=== PATIENT | female | born 1975 | race Caucasian/White ===

== ENCOUNTER → 2017-05-24 | Outpatient (CLI) | payer OTHER ==
--- NOTE | 2017-05-26 09:45 | MM ---
Reason for exam: screening (asymptomatic). Last mammogram was performed 5 years and 7 months ago. History: Patient had first child at age 33. Taking hormonal contraceptives for 20 years beginning at age 16. Physical Findings: A clinical breast exam by your physician is recommended on an annual basis and results should be correlated with mammographic findings. MG Screening Mammo w CAD Bilateral CC and MLO view(s) were taken. Prior study comparison: November 03, 2011, bilateral digital screening mammo w/CAD. The breast tissue is heterogeneously dense. This may lower the sensitivity of mammography. No significant changes when compared with prior studies. ASSESSMENT: Negative, BI-RAD 1 RECOMMENDATION: Routine screening mammogram of both breasts in 1 year.
== END | disposition home or self-care (01) ==
LOC: RADMAMWWP 07:17
PROVIDERS: ATTEND Obstetrics & Gynecology
DX: Z12.31 Encounter for screening mammogram for malignant neoplasm of breast (principal)
CPT/HCPCS: 77067

== ENCOUNTER → 2018-02-02 | Outpatient (CLI) | payer BC, OTHER ==
--- NOTE | 2018-02-02 21:05 | CONS ---
CONSULTATION DATE OF SERVICE: 02/02/2018 42-year-old lady who has been evaluated in the sleep center for possible obstructive sleep apnea-hypopnea syndrome. HISTORY OF PRESENT ILLNESS/SLEEP WAKE EVALUATION: SLEEP SCHEDULE: Patient usual sleep schedule at the present time from 9 p.m. until 5:30 a.m. on working days and from 9 p.m. until 6:30 or 7 am on weekends. FALLING ASLEEP: No problems with falling asleep, although she has TV set in the bedroom. DURING SLEEP: She snores and wakes up from sleep up to 4 times. Sometimes patient sleeps at night with her . About 20 years ago, she had a sleep study. At that time sleep study was negative for obstructive sleep apnea-hypopnea syndrome, but since that time she increased her weight significantly. After falling asleep quite quickly, patient has multiple awakenings from sleep and sometimes has problem with falling asleep again. DURING THE DAY/SLEEP WAKE EVALUATION: In the morning she wakes up tired, has problem with concentration, irritability. [place] Sleepiness Scale is 3. PAST MEDICAL HISTORY: Positive for colon polyps. PAST SURGICAL HISTORY: Tonsillectomy, polyps removed during colonoscopy. MEDICATION: control pill. SOCIAL HISTORY: Negative for smoking. Alcohol consumption very rarely. REVIEW OF SYSTEMS: Multiple awakenings from sleep. FAMILY HISTORY: Hypertension, hyperlipidemia, sinus problems, lung problems, sleep apnea, snoring, headaches, cancer, acid reflux. PHYSICAL EXAM: Presently without distress with BP 127/86, HR 69, RR 16, height 5 feet 5 inches, weight 153.6 with body mass index 25.4, VITAL SIGNS: Temperature 98.1, oxygen saturation on room air 100%. Oropharynx moderately low position of soft palate. Restriction of nasal breathing bilaterally. Retrognathia about 2 mm. Neck 13 inches in circumference. LUNGS Clear to percussion and to auscultation. Good air exchange. No wheezing or rhonchi. HEART S1, S2 regular. No murmurs, gallops, or rubs. ABDOMEN Soft and nontender. Bowel sounds are present. No organomegaly appreciated. EXTREMITIES No clubbing or cyanosis. ACUTE SPECIALIST Awake, alert, and oriented X3. Cranial nerves 2 to 7 intact. There is no fasciculation or atrophy. noted. No focal deficits observed. IMPRESSION: 1. Snoring, multiple awakenings from sleep, low position of soft palate, restriction of nasal breathing, obstructive sleep apnea-hypopnea syndrome. 2. History of kicking at night PLMS. 3. Status post tonsillectomy. 4. History of colon polyps. Status post polyps removed during colonoscopy. PLAN: 1. Polysomnography for evaluation of patient's breathing during the sleep and also to check for possible periodic limb movements. 2. CPAP/BiPAP titration if sleep study confirms obstructive sleep apnea-hypopnea syndrome. 3. Preferable position during sleep on the side. 4. No driving if patient feels any sleepiness. 5. I will see patient for follow up visit to explain results of testing and following plan. Thank you very much for referring this patient for consultation. Sincerely, Alfonso Vitale MD, PhD, FAASM Diplomat of [employer] Extrusion Die Corrector of [facility] [place] MMODL / KOREYN: [id number] /
== END | disposition home or self-care (01) ==
LOC: SLEEP 16:37
PROVIDERS: ATTEND Internal Medicine
DX: G47.33 Obstructive sleep apnea (adult) (pediatric) (principal); Z86.010 Personal history of colon polyps; Z87.898 Personal history of other specified conditions; Z90.09 Acquired absence of other part of head and neck; Z98.890 Other specified postprocedural states
CPT/HCPCS: 99211

== ENCOUNTER → 2018-05-18 | Outpatient (CLI) | payer BC ==
--- NOTE | 2018-05-18 18:43 | PN ---
PROGRESS NOTE DATE OF SERVICE: 05/18/2018 43-year-old lady has been followed in Sleep Center to discuss results of the sleep study and following plan. I discussed results of sleep studies with the patient in detail. Sleep study did not show any significant respiratory abnormalities. Totally it was documented only one episode of stopped breathing with total apnea-hypopnea index 0.2 and with the lowest oxygen level 89.6%, which is perfect. During the night, patient was in different position mostly on the back. She went through all the stages of sleep. No periodic limb movements have been documented. Sleep efficiency was 87.6%, which is borderline normal. Usually patient's sleep schedule at home from 9 p.m. to 5:30 a.m. Sometimes she may wake up in the middle of sleep and may have difficulties to fall asleep again. MEDICATIONS: . PHYSICAL EXAM: Patient in no distress. BP 120/71, HR 58, RR 16, height 5 feet 5 inches, weight 151, body mass index 25.1. Oxygen saturation at room air 100%. Oropharynx: Low position of soft palate. Neck: Supple, no JVD. Thyroid is not palpable. LUNGS: Clear to percussion and to auscultation. Good air exchange. No wheezing or rhonchi. HEART: S1, S2 regular. No murmurs, gallops, or rubs. ABDOMEN: Soft and nontender. Bowel sounds are present. No organomegaly appreciated. EXTREMITIES: No clubbing or cyanosis. BASKET WEAVER Awake, alert, and oriented X3. Cranial nerves 2 to 7 intact. There is no fasciculation or atrophy. noted. No focal deficits observed. IMPRESSION: 1. No significant respiratory abnormalities have been documented during the sleep study. 2. Very mild snoring has been documented. 3. No periodic limb movements during the sleep test. 4. Normal sleep efficiency during the sleep study with short sleep latency. 5. Status post tonsillectomy. 6. History of colon polyps removed during colonoscopy. PLAN: 1. Sleep hygiene with regular time in bed for 8-1/2 hours. 2. Stimulus control, paradoxical intention. No watching clock at night. 3. Preferable position during the sleep on the side. 4. No driving if feeling any sleepiness. No sleepiness presently. [place] Sleepiness Scale is 1. Normal. Thank you very much for allowing me to participate in management of your patient. Sincerely, Alfonso Vitale MD, PhD, FAASM Diplomat of [employer] Telegraphic Service Dispatcher of [facility] [place] MMURIEL / JAYLON: [id number] /
== END ==
LOC: SLEEP 16:34
PROVIDERS: ATTEND Internal Medicine
DX: R06.83 Snoring (principal); Z90.89 Acquired absence of other organs; Z98.890 Other specified postprocedural states; Z86.010 Personal history of colon polyps

== ENCOUNTER → 2018-06-15 | Outpatient (CLI) | payer BC ==
--- NOTE | 2018-06-16 13:29 | MM ---
Reason for exam: screening (asymptomatic). Last mammogram was performed 1 year and 1 month ago. History: Patient had first child at age 33. Taking hormonal contraceptives for 20 years beginning at age 16. Physical Findings: A clinical breast exam by your physician is recommended on an annual basis and results should be correlated with mammographic findings. MG 3D Screening Mammo W/Cad Bilateral CC and MLO view(s) were taken. Prior study comparison: May 24, 2017, bilateral MG screening mammo w CAD. November 03, 2011, bilateral digital screening mammo w/CAD. The breast tissue is extremely dense which could obscure a lesion on mammography. There is no discrete abnormality. No significant changes when compared with prior studies. ASSESSMENT: Negative, BI-RAD 1 RECOMMENDATION: Routine screening mammogram of both breasts in 1 year.
== END | disposition home or self-care (01) ==
LOC: RADMAMWWP 08:07
PROVIDERS: ATTEND Obstetrics & Gynecology
DX: Z12.31 Encounter for screening mammogram for malignant neoplasm of breast (principal)
CPT/HCPCS: 77063; 77067

== ENCOUNTER 2018-08-11 08:38 | Day surgery (SDC) | payer BC ==
[2018-08-09 09:30] VITALS: BMI 23.4
[~2018-08-11 08:38] MED LIST: LACTATED RINGERS 1,000 ML IV SCH
[2018-08-11] MEDS ORDERED: LIDOCAINE 1% 20 ML VIAL (10MG/ML) FOR IV START INTRADERMA ONE (09:18)
[2018-08-11 09:21] VITALS: TEMP 97.5
[2018-08-11] MEDS ORDERED: PROPOFOL 10 MG/ML 20 ML VIAL IV ONE (09:52)
--- NOTE | 2018-08-11 10:09 | P.PCN ---
Date of Procedure: 08/11/18 Procedure(s) Performed: BRIEF HISTORY: Patient is a 43-year-old pleasant white female, scheduled for an elective colonoscopy as a part of screening for colorectal neoplasia. She does have family history of colon cancer diagnosed in her grandmother at age 70. PROCEDURE PERFORMED: Colonoscopy With biopsy PREOPERATIVE DIAGNOSIS: Screening for colon cancer/family history of colon cancer. IV sedation per Anesthesia. PROCEDURE: After informed consent was obtained, the patient, was brought into the endoscopy unit. IV sedation was administered by Anesthesia under continuous monitoring. Digital rectal examination was normal. Initially the Olympus CF-160 flexible video colonoscope was then inserted in the rectum, gradually advanced into the cecum without any difficulty. Careful examination was performed as the scope was gradually being withdrawn. Ileocecal valve and the appendiceal orifice were visualized and appeared normal. Prep was excellent. Mucosa of the cecum, ascending colon, transverse colon, descending colon, sigmoid colon, and rectum appeared normal. There was a 3-4 mm sessile proximal rectal polyp that was removed by cold biopsy. Retroflexion was performed in the rectum and no lesions were seen. The patient tolerated the procedure well. IMPRESSION: 3-4 mm sessile proximal rectal polyp status post removal by cold biopsy. Rest of the colon appeared normal RECOMMENDATIONS: Findings of this examination were discussed with the patient as well as a family. She was advised to follow with the biopsy results and if the biopsy shows an adenoma she can have a repeat colonoscopy in 5 years.
[2018-08-11 10:32] VITALS: BP 129/85; PULSE 55; RESP 16
== END 2018-08-11 10:50 | disposition home or self-care (01) ==
LOC: ORWHC2ENDO 08:38
PROVIDERS: ATTEND Internal Medicine Gastroenterology
DX: Z12.11 Encounter for screening for malignant neoplasm of colon (principal); Z80.0 Family history of malignant neoplasm of digestive organs; K62.1 Rectal polyp; K21.9 Gastro-esophageal reflux disease without esophagitis; Z79.899 Other long term (current) drug therapy
CPT/HCPCS: 81025; 88305; 45380; J2704

== ENCOUNTER 2018-12-22 16:55 | Emergency (ER) | payer BC ==
[2018-12-22 17:09] VITALS: RESP 18
[2018-12-22] MEDS ORDERED: METOCLOPRAMIDE 5 MG/ML 2 ML VIAL IVP STA (17:41)
[2018-12-22] MEDS ORDERED: SODIUM CHLORIDE 0.9% 1,000 ML IV STA (17:41)
[2018-12-22] MEDS ORDERED: NITROGLYCERIN SL TABS 0.4 MG TAB SUBLINGUAL STA (17:42)
[2018-12-22] MEDS ORDERED: GLUCAGON 1 MG/ML VIAL IVP STA (17:42)
--- NOTE | 2018-12-22 17:50 | ED ---
General Adult HPI - General Chief complaint: Recheck/Abnormal Lab/Rx Stated complaint: Food stuck in throat since yesterday Time Seen by Provider: 12/22/18 17:16 Source: patient, RN notes reviewed Mode of arrival: ambulatory Limitations: no limitations - History of Present Illness Initial comments: Patient is a pleasant 43-year-old female presenting to the emergency department with concerns for something stuck in her throat. Patient was eating steak last night. Patient noticed when she was swallowing that is not going down. Patient has felt that has been stuck since that time. Patient is able to drink water without difficulty. Patient was able to try a tiny bit of oatmeal earlier. Patient has vomited a small amount several times however no large amount of meat came out. No history of similar symptoms previous. Patient does have history of chronic reflux. Patient states discomfort is mild. - Related Data Home Medications Medication Instructions Recorded Confirmed Ranitidine HCl 150 mg PO DAILY PRN 08/09/18 08/09/18 Allergies Allergy/AdvReac Type Severity Reaction Status Date / Time No Known Allergies Allergy Verified 12/22/18 17:09 Review of Systems ROS Statement: Those systems with pertinent positive or pertinent negative responses have been documented in the HPI. ROS Other: All systems not noted in ROS Statement are negative. Constitutional: Denies: fever Eyes: Denies: eye pain ENT: Denies: ear pain Respiratory: Denies: cough Cardiovascular: Reports: as per HPI Endocrine: Denies: fatigue Gastrointestinal: Reports: as per HPI. Denies: abdominal pain Genitourinary: Denies: dysuria Musculoskeletal: Denies: back pain Skin: Denies: rash Past Medical History Past Medical History: GERD/Reflux Additional Past Medical History / Comment(s): VERTIGO AT TIMES History of Any Multi-Drug Resistant Organisms: None Reported Past Surgical History: Tonsillectomy Additional Past Surgical History / Comment(s): COLONOSCOPY, CYSTOSCOPY, AND LAPAROSCOPY Past Anesthesia/Blood Transfusion Reactions: Previous Problems w/ Anesthesia Additional Past Anesthesia/Blood Transfusion Reaction / Comment(s): SLOW TO COME OUT OF ANESTHESIA Past Psychological History: No Psychological Hx Reported Smoking Status: Former smoker Past Alcohol Use History: Occasional Past Drug Use History: None Reported - Past Family History Mother Family Medical History: No Reported History General Exam Limitations: no limitations General appearance: alert, in no apparent distress Head exam: Present: normocephalic Eye exam: Present: normal appearance, PERRL ENT exam: Present: normal oropharynx Neck exam: Present: normal inspection Respiratory exam: Present: normal lung sounds bilaterally Cardiovascular Exam: Present: regular rate, normal rhythm Expanded Peripheral pulses: 2+: Posterior Tibialis (R), Posterior Tibialis (L), Dorsalis Pedis (R), Dorsalis Pedis (L) GI/Abdominal exam: Present: soft, normal bowel sounds. Absent: distended, tenderness, guarding, rebound, rigid, pulsatile mass Extremities exam: Present: normal inspection. Absent: pedal edema, calf tenderness Neurological exam: Present: alert Psychiatric exam: Present: normal affect, normal mood Skin exam: Present: normal color Course Vital Signs 12/22/18 17:06 Temperature 98.3 F Pulse Rate 78 Respiratory 18 Rate Blood Pressure 133/83 O2 Sat by Pulse 100 Oximetry Medical Decision Making - Medical Decision Making Patient reevaluated and resting comfortably in bed. Patient does feel better following medications. Patient given 8 ounces of soda pop and did tolerate this well. Patient also tolerated sherbet emergency department. Patient states symptoms are near resolved. Patient is comfortable with discharge home. Patient is advised GI follow-up. Disposition Clinical Impression: Sensation of foreign body in esophagus Disposition: HOME SELF-CARE Condition: Stable Instructions (If sedation given, give patient instructions): Esophageal Foreign Body (ED), Esophageal Spasm (ED) Additional Instructions: Soft diet. Please follow-up with gastroenterology in the next couple days for recheck. You will likely need EGD/scope done. Return for increased pain or difficulty in breathing, not tolerating liquids or oral intake, worsening symptoms or other concerns. Continue Zantac. Is patient prescribed a controlled substance at d/c from ED?: No Referrals: Magnus Dick DO [Primary Care Provider] - 1-2 days Time of Disposition: 19:27
[2018-12-22 19:54] VITALS: BP 133/78; PULSE 76; TEMP 98.2
== END 2018-12-22 19:53 | disposition home or self-care (01) ==
LOC: EC 16:55
DX: K22.8 Other specified diseases of esophagus (principal); K21.9 Gastro-esophageal reflux disease without esophagitis; Z87.891 Personal history of nicotine dependence
CPT/HCPCS: 99283; 96374; 96375; 96361; J1610; J2765

== ENCOUNTER → 2019-03-16 | Day surgery (SDC) | payer BC ==
[2019-03-14 11:13] VITALS: BMI 23.8
[~2019-03-16] MED LIST changes: +GLYCOPYRROLATE 0.2 MG/ML 2 ML VIAL ONE; +LIDOCAINE 1% 20 ML VIAL (10MG/ML) FOR IV START INTRADERMA PRN; +LIDOCAINE 1% INJ 10MG/ML (20 ML MDV) ONE; +PROPOFOL 10 MG/ML 20 ML VIAL IV ONE
[2019-03-16 11:04] VITALS: TEMP 97
--- NOTE | 2019-03-16 12:05 | P.PCN ---
Date of Procedure: 03/16/19 Procedure(s) Performed: BRIEF HISTORY: Patient is a [id number]-year-old, pleasant, female scheduled for an upper endoscopy as a part of evaluation of intermittent dysphagia to solids. 2 months ago she had an episode of acute food impaction and into the emergency room and was given glucagon and symptoms subsided. She did not need an EGD at that time. Since then she is been having intermittent heartburn and dysphagia and was started on Prilosec 20 mg daily and symptoms are significantly improved. She is scheduled for an upper endoscopy with possible dilation today. PROCEDURE PERFORMED: Esophagogastroduodenoscopy with biopsy. PREOPERATIVE DIAGNOSIS: GERD/intermittent dysphagia to solids. IV sedation per anesthesia. PROCEDURE: After informed consent was obtained, the patient was brought into the endoscopy unit. IV sedation was administered by Anesthesia under continuous monitoring. Initially the Olympus GIF-140 video endoscope was inserted into the mouth. Esophagus intubated without any difficulty. It was gradually advanced into the stomach and duodenum and carefully examined. The bulb and the second part of the duodenum appeared normal. The scope at this time was withdrawn to the stomach, adequately insufflated with air, and upon careful examination, mucosa of the antrum, had mild gastritis and biopsies were done from this area. The body, cardia and the fundus appeared normal. The scope was then withdrawn into the esophagus. The GE junction was located at 39 cm from the incisors. There was some thickening of the esophageal folds noted in the distal esophagus and biopsies were done from this area.The rest of the esophagus appeared normal. There were no erosions or ulcerations seen and the patient tolerated the procedure well. IMPRESSION: 1. Mild antral gastritis. 2. Mild thickening of the distal esophageal folds but no evidence of esophageal stricture status post biopsies to rule out eosinophilic esophagitis. RECOMMENDATIONS: The findings of this examination were discussed with the patient as well as his family. She was advised to continue Prilosec 20 mg daily and follow antireflux measures. She'll be seen in office in 6 months..
[2019-03-16 12:18] VITALS: RESP 16
[2019-03-16 12:37] VITALS: BP 121/83; PULSE 57
== END ==
LOC: ORWHC2ENDO 10:05
PROVIDERS: ATTEND Internal Medicine Gastroenterology
DX: K29.50 Unspecified chronic gastritis without bleeding (principal); K21.9 Gastro-esophageal reflux disease without esophagitis; Z79.899 Other long term (current) drug therapy
CPT/HCPCS: 81025; 88305; 43239; J2001; J2704

== ENCOUNTER → 2020-03-26 | Outpatient (CLI) | payer BC | END | disposition home or self-care (01) | LOC: RADUSWWP 07:38 | PROVIDERS: ATTEND Internal Medicine Gastroenterology | DX: Z53.9 Procedure and treatment not carried out, unspecified reason (principal) ==

== ENCOUNTER → 2020-04-16 | Outpatient (CLI) | payer BC ==
--- NOTE | 2020-04-16 09:27 | US ---
EXAMINATION TYPE: US abdomen complete DATE OF EXAM: 04/16/2020 COMPARISON: NONE CLINICAL HISTORY: 44-year-old female R10.32 Lower Left quad pain. Left sided pain near umbilicus with bloating ongoing since 01/10 TECHNIQUE: Multiple sonographic images of the abdomen are obtained. FINDINGS: EXAM MEASUREMENTS: Liver Length: 15.0 cm Gallbladder Wall: 0.1 cm CBD: 0.4 cm Spleen: 9.0 cm Right Kidney: 9.1 x 4.4 x 4.3 cm Left Kidney: 9.9 x 4.6 x 5.4 cm Pancreas: wnl Liver: wnl Gallbladder: wnl Evidence for sonographic Olmos's sign: no CBD: wnl Spleen: wnl Right Kidney: No hydronephrosis. Slightly limited lower pole due to shadowing from bowel gas. Left Kidney: No hydronephrosis. Slightly limited upper pole due to shadowing from bowel gas. Upper IVC: wnl Abd Aorta: wnl Practical Nursing Faculty notes:scanned area of LLQ near umbilicus and no abnormality seen. There is overlying jatinder wel gas. IMPRESSION: Unremarkable sonographic examination of the abdomen. Additional targeted scanning along the left lowe r quadrant periumbilical region shows no discrete sonographic abnormality.
== END | disposition home or self-care (01) ==
LOC: RADUSWWP 07:34
PROVIDERS: ATTEND Internal Medicine Gastroenterology
DX: R10.32 Left lower quadrant pain (principal)
CPT/HCPCS: 76700

== ENCOUNTER → 2021-04-22 | Outpatient (CLI) | payer BC ==
--- NOTE | 2021-04-22 15:44 | SFUN ---
SLEEP CENTER FOLLOW UP NOTE DATE OF SERVICE: 04/22/2021 This 45-year-old lady has been followed in the sleep center. The last time I saw this patient was 3 years ago. We did a sleep study at that time which was negative for obstructive sleep apnea-hypopnea syndrome, but at present the patient has developed more episodes of snoring and feels more tired in the morning after awakening. [place] Sleepiness Scale today is 3. Sometimes the patient wakes up in the middle of the night and has difficulties falling asleep again. MEDICATIONS: 1. Omeprazole twice a day. 2. control pills. PHYSICAL EXAMINATION: GENERAL: Pleasant patient in no distress. VITAL SIGNS: BP 120/73, HR 63, RR 16, height 5 feet 5-1/4 inches, weight 155.0, body mass index 25.6, temperature 97.4, oxygen saturation at room air 100%. HEENT: PERRLA, EOMI, evaluation of oropharynx showed tongue protrudes midline. Low position of soft palate. NECK: Supple, no JVD. Thyroid is not palpable. LUNGS: Clear to percussion and to auscultation. Good air exchange. No wheezing or rhonchi. HEART: S1, S2 regular. No murmurs, gallops, or rubs. ABDOMEN: Soft and nontender. Bowel sounds are present. No organomegaly appreciated. EXTREMITIES: No clubbing or cyanosis. EMERGENCY ROOM ORDERLY: Awake, alert, and oriented X3. Cranial nerves 2 to 7 intact. There is no fasciculation or atrophy. noted. No focal deficits observed. IMPRESSION: 1. Snoring, awakenings from sleep, feeling not refreshed in the morning after sleep, low position of soft palate; possible obstructive sleep apnea-hypopnea syndrome. 2. Acid reflux. 3. Status post tonsillectomy. PLAN: 1. Home sleep apnea test for evaluation of patient's breathing during sleep. 2. Sleep hygiene with regular time in bed for at least 8 hours. 3. Precautions related to driving. No driving if feeling any sleepiness. Thank you very much for allowing me to participate in the management of your patient. Sincerely, Alfonso Vitale MD, PhD, FAASM Diplomat of [employer] Sleep Medicine Board of [place] [employer] Insurance Administrative Assistant of [facility] MMODL / IJN: [id number] /
== END ==
LOC: SLEEP 14:31
PROVIDERS: ATTEND Internal Medicine
DX: R06.83 Snoring (principal); K21.9 Gastro-esophageal reflux disease without esophagitis; Z90.89 Acquired absence of other organs; Z87.891 Personal history of nicotine dependence; Z79.899 Other long term (current) drug therapy

== ENCOUNTER → 2021-05-29 | Outpatient (CLI) | payer BC ==
--- NOTE | 2021-06-01 13:49 | MM ---
Reason for exam: screening (asymptomatic). Last mammogram was performed 2 years and 11 months ago. History: Patient had first child at age 33. Taking hormonal contraceptives for 20 years beginning at age 16. Physical Findings: A clinical breast exam by your physician is recommended on an annual basis and results should be correlated with mammographic findings. MG 3D Screening Mammo W/Cad Bilateral CC and MLO view(s) were taken. Prior study comparison: June 15, 2018, bilateral MG 3d screening mammo w/cad. May 24, 2017, bilateral MG screening mammo w CAD. The breast tissue is extremely dense which could obscure a lesion on mammography. No significant changes when compared with prior studies. ASSESSMENT: Negative, BI-RAD 1 RECOMMENDATION: Routine screening mammogram of both breasts in 1 year. Patient should continue monthly self breast exams. A negative report should not preclude additional follow up of suspicious palpable abnormalities.
== END | disposition home or self-care (01) ==
LOC: RADMAMWWP 07:04
PROVIDERS: ATTEND Obstetrics & Gynecology
DX: Z12.31 Encounter for screening mammogram for malignant neoplasm of breast (principal)
CPT/HCPCS: 77063; 77067

== ENCOUNTER → 2021-08-06 | Outpatient (CLI) | payer BC ==
--- NOTE | 2021-08-06 21:49 | SFUN ---
SLEEP CENTER FOLLOW UP NOTE DATE OF SERVICE: 08/06/2021 46-year-old lady has been followed in Sleep Center to discuss results of sleep study and following plan. The patient had a home sleep apnea test and I discussed results of sleep study with patient in detail. No significant respiratory abnormalities have been documented during the sleep study. Apnea-hypopnea index is 1.6. Lowest oxygen level 91%. [place] Sleepiness Scale today is 4. The patient experiencing episodes of tiredness during the day. MEDICATIONS: control pills, omeprazole 10 mg twice a day. PHYSICAL EXAMINATION: GENERAL: Patient in no distress. BP 116/78, HR 67, RR 16, weight 156, temperature 96.7, oxygen saturation at room air 100%. NECK: Supple, no JVD. Thyroid is not palpable. LUNGS: Clear to percussion and to auscultation. Good air exchange. No wheezing or rhonchi. HEART: S1, S2 regular. No murmurs, gallops, or rubs. ABDOMEN: Soft and nontender. Bowel sounds are present. No organomegaly appreciated. EXTREMITIES: No clubbing or cyanosis. DENTIST PRIVATE PRACTICE: Awake, alert, and oriented X3. Cranial nerves 2 to 7 intact. There is no fasciculation or atrophy. noted. No focal deficits observed. IMPRESSION: 1. Snoring. 2. No significant respiratory abnormalities have been documented during the sleep study. 3. Acid reflux. 4. Status post tonsillectomy. PLAN: 1. Sleep hygiene with regular time in bed for 8 hours. 2. Precautions related to driving. No driving if feeling sleepiness. 3. The patient may consider evaluation by Ear, Nose and Throat physician for snoring. I discussed with her this possibility. 4. Preferable position during sleep on the side and slightly up. Thank you very much for allowing me to participate in management of your patient. Sincerely, Alfonso Vitale MD, PhD, FAASM Diplomat of [employer] Sleep Medicine Board of [employer] Machinist of [facility] [place] MMURIEL / JAYLON: [id number] /
== END ==
LOC: SLEEP 11:41
PROVIDERS: ATTEND Internal Medicine
DX: Z09 Encounter for follow-up examination after completed treatment for conditions other than malignant neoplasm (principal); R06.83 Snoring; K21.9 Gastro-esophageal reflux disease without esophagitis; Z90.09 Acquired absence of other part of head and neck

== ENCOUNTER → 2022-06-04 | Outpatient (CLI) | payer BC ==
--- NOTE | 2022-06-04 08:31 | MM ---
Reason for Exam: Screening (asymptomatic). Last screening mammogram was performed 12 month(s) ago. Patient History: Menarche at age 13. First Full-Term at age 33. Late child-bearing (after 30). Currently using Hormonal Contraceptives, beginning at age 16 for 20 years. Last menstrual period: 05/29/2022 Risk Values: Anastacia 5 year model risk: 1.2%. NCI Lifetime model risk: 12.7%. Prior Study Comparison: 05/24/2017 Bilateral Screening Mammogram, [facility]. 06/15/2018 Bilateral Screening Mammogram, [facility]. 05/29/2021 Bilateral Screening Mammogram, [facility]. Tissue Density: The breast tissue is heterogeneously dense. This may lower the sensitivity of mammography. Findings: Analyzed By CAD. There is no suspicious group of microcalcifications or new suspicious mass in either breast. Overall Assessment: Negative, BI-RAD 1 Management: Screening Mammogram of both breasts in 1 year. A clinical breast exam by your physician is recommended on an annual basis and results should be correlated with mammographic findings. [facility] will attempt to contact patient to return for supplemental views and ultrasound if indicated. Electronically signed and approved by: Bryon Quintanilla DO
== END | disposition home or self-care (01) ==
LOC: RADMAMWWP 07:07
PROVIDERS: ATTEND Obstetrics & Gynecology
DX: Z12.31 Encounter for screening mammogram for malignant neoplasm of breast (principal)
CPT/HCPCS: 77063; 77067

== ENCOUNTER → 2023-07-11 | Outpatient (CLI) | payer BC ==
--- NOTE | 2023-07-11 13:13 | MM ---
Reason for Exam: Screening (asymptomatic). Last mammogram was performed 1 year(s) and 1 month(s) ago. Patient History: Menarche at age 13. First Full-Term at age 33. Late child-bearing (after 30). Premenopausal. Currently using Hormonal Contraceptives, beginning at age 16 for 20 years. Risk Values: Anastacia 5 year model risk: 1.3%. NCI Lifetime model risk: 12.5%. Prior Study Comparison: 05/24/2017 Bilateral Screening Mammogram, [facility]. 06/15/2018 Bilateral Screening Mammogram, [facility]. 05/29/2021 Bilateral Screening Mammogram, [facility]. 06/04/2022 Bilateral MG 3D screening mammo w/cad, [facility]. Tissue Density: The breasts are heterogeneously dense, which may obscure small masses. Findings: Analyzed By CAD. Right breast: There is no suspicious group of microcalcifications or new suspicious mass. Left breast: There is no suspicious group of microcalcifications or new suspicious mass. Overall Assessment: Negative, BI-RAD 1 Management: Screening Mammogram of both breasts in [address] [facility] will attempt to contact patient to return for supplemental views and ultrasound if indicated. Patient should continue monthly self-breast exams. A clinical breast exam by your physician is recommended on an annual basis. This exam should not preclude additional follow-up of suspicious palpable abnormalities. Note on Anastacia scores and lifetime risk: 1. A Anastacia score greater than 3% is considered moderate risk. If this is the case, consider specialist referral to assess eligibility for a risk reducing agent. 2. If overall lifetime risk for the development of breast cancer is 20% or higher, the patient may qualify for future screening with alternating mammogram and breast MRI. Electronically signed and approved by: Bryon Quintanilla DO
== END | disposition home or self-care (01) ==
LOC: RADMAMWWP 07:03
PROVIDERS: ATTEND Obstetrics & Gynecology
DX: Z12.31 Encounter for screening mammogram for malignant neoplasm of breast (principal)
CPT/HCPCS: 77063; 77067

== ENCOUNTER → 2023-08-10 | Outpatient (CLI) | payer BC ==
--- NOTE | 2023-08-17 06:38 | MR ---
EXAMINATION TYPE: MR knee LT wo con DATE OF EXAM: 08/10/2023 COMPARISON: Outside left knee x-ray July 14, 2023 HISTORY: Lt knee pain TECHNIQUE: Multiplanar, multisequence images of the knee is performed without IV contrast. FINDINGS: MEDIAL MENISCUS: Subtle oblique increased signal posterior horn appears to extend to inferior articul ar surface. LATERAL MENISCUS: Anterior and posterior horns are intact without tear. CRUCIATE LIGAMENTS: The anterior and posterior cruciate ligaments are intact and unremarkable. COLLATERAL LIGAMENTS: The medial collateral ligament and lateral collateral ligament complex are inta ct and unremarkable. EXTENSOR MECHANISM: Visualized quadriceps and patellar tendons are intact. EFFUSION: No significant suprapatellar joint effusion. POPLITEAL CYST: No popliteal/angulo cyst. TRICOMPARTMENT SPACES: Mild tricompartment joint space loss. No significant spurring. CARTILAGE: Tricompartmental articular cartilage is preserved. BONE MARROW SIGNAL: Heterogeneous diminished T1 and increased T2 signal involving inferior half of th e patella OTHER: No additional significant abnormality is appreciated. IMPRESSION: 1. Abnormal bone marrow edema involving inferior one half of the patella. Osseous contusion injury ne eds to be considered. 2. At least intrasubstance suspected full thickness tear posterior horn of medial meniscus. 3. Mild tricompartment degenerative changes are present.
== END | disposition home or self-care (01) ==
LOC: RADMRIMAIN 10:51
PROVIDERS: ATTEND Orthopaedic Surgery
DX: M17.12 Unilateral primary osteoarthritis, left knee (principal)

== ENCOUNTER → 2023-10-01 | Outpatient (CLI) | payer BC | END | disposition home or self-care (01) | LOC: LABWHC1 08:22 | PROVIDERS: ATTEND Orthopaedic Surgery | CPT/HCPCS: 36415; 80048; 85025 ==

== ENCOUNTER 2023-10-21 06:03 | Day surgery (SDC) | payer BC ==
[2023-10-19 11:01] VITALS: BMI 25.4
--- NOTE | 2023-10-20 08:41 | P.HPOR ---
History of Present Illness H&P Date: 10/20/23 Chief Complaint: Left knee pain The patient is a 48-year-old female who presents with left knee pain after an injury in June. She tripped landing on her knee. She notes continued medial and anterior pain along with catching and instability. She has tried medications without significant relief. Review of Systems Per HPI Past Medical History Past Medical History: GERD/Reflux Additional Past Medical History / Comment(s): VERTIGO AT TIMES, hypoglycemia History of Any Multi-Drug Resistant Organisms: None Reported Past Surgical History: Tonsillectomy Additional Past Surgical History / Comment(s): COLONOSCOPY, CYSTOSCOPY, AND LAPAROSCOPY, EGD. Past Anesthesia/Blood Transfusion Reactions: Previous Problems w/ Anesthesia Additional Past Anesthesia/Blood Transfusion Reaction / Comment(s): SLOW TO COME OUT OF ANESTHESIA Smoking Status: Former smoker - Past Family History Mother Family Medical History: No Reported History Medications and Allergies Home Medications Medication Instructions Recorded Confirmed Type Omeprazole 20 mg PO BID 03/14/19 10/19/23 History norethindrone-e.estradioL-iron 1 each PO HS 10/19/23 10/19/23 History [ Tablet] Allergies Allergy/AdvReac Type Severity Reaction Status Date / Time ibuprofen AdvReac SORES ON Verified 10/19/23 10:49 TONGUE Physical Examination - Knee left Appearance: effusion Effusion grade: trace Tenderness with palpation: anterior, medial ROM: extension: -10 degrees ROM: flexion: 130 degrees Strength: extension: 5/5 Strength: flexion: 5/5 Meniscal tests: medial meniscal tests: positive, medial joint line pain: positive Results The patient is a well-developed well-nourished female approximately 5 foot 6, 155 pounds of mesomorphic habitus. HEENT exam is nonfocal, neck is supple. She has painless passive motion of her left hip. Straight leg raise is negative. She is tender about the medial joint line of the left knee. Collaterals are stable, Franklin's negative, Fran's elicits medial pain. Her distal neurova scular appears intact in the left lower extremity. She does have an antalgic gait pattern. - Diagnostic results Knee MRI: image reviewed (MRI of the left knee shows evidence of increased signal involving the posterior horn of the medial meniscus along with edema involving the inferior pole of the patella.) Assessment and Plan Assessment: Left knee internal derangement/medial meniscal tear Plan: I talked to the patient at length regarding her condition along with treatment options. At this point she is having persistent pain and mechanical symptoms after this recent injury despite conservative measures. After a thorough discussion she opts to proceed with surgical intervention. Risks and benefits were discussed at length in layman's terms. We will plan to proceed with left knee arthroscopy with possible partial medial meniscectomy. We would likely perform that as an outpatient procedure.
[2023-10-21] MEDS ORDERED: MIDAZOLAM 2 MG/2 ML VIAL IV PRN (07:00)
[2023-10-21] MEDS ORDERED: HYDROmorphone 0.5 MG/0.5 ML SYRINGE IVP PRN (07:00)
[2023-10-21 07:12] LABS: Glucose,Whole Blood 84 mg/dL (70-110)
[2023-10-21] MEDS: LACTATED RINGERS 1,000 ML IV SCH (07:14)
[2023-10-21] MEDS: IV FLUID CONTINUATION 1,000 ML IV ONE (07:14)
[2023-10-21] MEDS: SCOPOLAMINE 1 MG/72 HR PATCH TRANSDERM ONE (07:16)
[2023-10-21] MEDS: DEXAMETHASONE SOD PHOSPHATE 4 MG/ML 1 ML VIAL IV ONE (07:16)
[2023-10-21] MEDS: ONDANSETRON 4 MG/2 ML VIAL IVP ONE (07:16)
[2023-10-21] MEDS ORDERED: fentaNYL (PF) 50 MCG/ML 2 ML AMP ONE (07:29)
[2023-10-21] MEDS ORDERED: MIDAZOLAM 2 MG/2 ML VIAL ONE (07:29)
[2023-10-21] MEDS ORDERED: ePHEDrine 50 MG/ML 1 ML VIAL ONE (07:29)
[2023-10-21] MEDS ORDERED: PROPOFOL 10 MG/ML 20 ML VIAL IV ONE (07:29)
[2023-10-21] MEDS ORDERED: LIDOCAINE 1% INJ 10MG/ML (20 ML MDV) ONE (07:29)
[2023-10-21 08:26] VITALS: RESP 16; TEMP 97.7
[2023-10-21 09:43] VITALS: PULSE 86
[2023-10-21 10:11] VITALS: BP 123/76
--- NOTE | 2023-10-21 13:19 | P.OP ---
Date of Procedure: 10/21/23 Preoperative Diagnosis: Left knee internal derangement Postoperative Diagnosis: Left knee posterior medial meniscal tear Procedure(s) Performed: Left knee arthroscopic partial medial meniscectomy Anesthesia: APRILA Surgeon: William Dillon Estimated Blood Loss (ml): 10 Pathology: none sent Condition: stable Disposition: PACU Indications for Procedure: The patient is a 48-year-old female who presents with progressive left knee pain and mechanical symptoms after previous injury despite conservative measures. A discussion of the risks and benefits of operative intervention versus continued conservative measures was made with the patient. She opted to proceed with surgery. Operative risks include infection, neurovascular injury, development of blood clots, possible incomplete resolution of symptoms, possible worsening of symptoms need for subsequent procedures was discussed. Informed consent was obtained. Operative Findings: As below Description of Procedure: The patient was brought to the operating room, and after induction of general anesthesia examined the left knee. Collaterals were stable, Franklin was negative, and posterior drawer was negative. The left lower extremity was prepped and draped in a normal fashion. A superior lateral portal was made through a 3 mm skin incision superior and lateral to the patella. This was used for outflow. A lateral portal was made through a 5 mm vertical skin incision lateral to the patella tendon above the joint line. Diagnostic arthroscopy was performed. On inspection of the medial compartment, a small oblique tear involving the posterior medial meniscus in the white-white junction was noted. This was debrided back to stable base with straight baskets and a motorized shaver. A small flap tear involving the anterior horn of the medial meniscus was also noted. This was debrided back to a stable base with a motorized shaver. The remaining medial meniscus was stable and intact. On inspection of the notch, the anterior cruciate ligament appeared to be intact. On inspection of the lateral compartment, no significant meniscal pathology was noted. On inspection of the patellofemoral articulation, a grade 2 chondral injury involving the inferior aspect of the medial facet was noted. No was no loose chondral flap. The gutters were clear debris. The knee was then thoroughly irrigated. The portals were closed with Steri-Strips. A sterile dressing was applied in addition to a compression stocking. The patient was awoken from general anesthesia and transferred to recovery room in good condition. Blood loss was estimated at 10 mL. No complications were incurred.
== END 2023-10-21 10:28 | disposition home or self-care (01) ==
LOC: OR 06:03
PROVIDERS: ATTEND Orthopaedic Surgery
DX: S83.242A Other tear of medial meniscus, current injury, left knee, initial encounter (principal); M17.12 Unilateral primary osteoarthritis, left knee; K21.9 Gastro-esophageal reflux disease without esophagitis; Z87.891 Personal history of nicotine dependence; Z88.6 Allergy status to analgesic agent; Z79.899 Other long term (current) drug therapy; W01.0XXA Fall on same level from slipping, tripping and stumbling without subsequent striking against object, initial encounter
CPT/HCPCS: 81025

== ENCOUNTER → 2024-03-17 | Outpatient (CLI) | payer BC ==
[2024-03-18 07:06] LABS: HCT 39.5 % (37.2-46.3); HGB 12.2 g/dL (12.0-15.0); MCH 27.8 pg (27.0-32.0); MCHC 30.9 g/dL (32.0-37.0); Mean Platelet Volume 11.6 FL (9.5-12.2); NRBC Per 100 WBC 0 X 10*3/uL (0.00-0.01); Platelet Count 318 X 10*3/uL (140-440); RBC 4.39 X 10*6/uL (4.10-5.20); RDW 13.8 % (11.5-14.5)
[2024-03-18 09:12] LABS: ALT 17 U/L (8-44); AST 18 U/L (13-35); Albumin 4.2 g/dL (3.8-4.9); Albumin/Globulin Ratio 1.35 Ratio (1.60-3.17); Alkaline Phosphatase 55 U/L (41-126); Blood Urea Nitrogen 10.8 mg/dL (9.0-27.0); Calcium 9.1 mg/dL (8.7-10.3); Carbon Dioxide 23.5 mmol/L (21.6-31.8); Chloride 110 mmol/L (96-109); Chol/HDL Ratio 3.95 Ratio; Globulin 3.1 g/dL (1.6-3.3); Glucose 78 mg/dL (70-110); LDL Cholesterol,Calculated 140.4 mg/dL (0.0-131.0); Sodium 146 mmol/L (135-145); Total Bilirubin 0.4 mg/dL (0.3-1.2); Total Protein 7.3 g/dL (6.2-8.2)
[2024-03-18 16:05] LABS: Appearance,Urine Clear (Clear); Bilirubin,Urine Negative (Negative); Blood,Urine Negative (Negative); Color,Urine Yellow (Yellow); Ketones,Urine Negative (Negative); Nitrite,Urine Positive (Negative); PH, Urine 5.5; Specific Gravity,Urine 1.009 (1.001-1.030); Urobilinogen,Urine 0.2 E.U./DL
[2024-03-18 16:28] LABS: Bacteria,Urine 3+ (None Seen)
== END | disposition home or self-care (01) ==
LOC: LABWHC1 10:39
PROVIDERS: ATTEND Family Medicine
DX: Z00.00 Encounter for general adult medical examination without abnormal findings (principal)
CPT/HCPCS: 36415; 80053; 80061; 81001; 82306; 83036; 84443; 85027

== ENCOUNTER → 2024-07-11 | Outpatient (CLI) | payer BC ==
--- NOTE | 2024-07-11 08:36 | MM ---
Reason for Exam: Screening (asymptomatic). Last screening mammogram was performed 12 month(s) ago. Patient History: Menarche at age 13. First Full-Term at age 33. Late child-bearing (after 30). Premenopausal. Currently using Hormonal Contraceptives, beginning at age 16 for 20 years. Risk Values: Naastacia 5 year model risk: 1.3%. NCI Lifetime model risk: 12.3%. Prior Study Comparison: 05/24/2017 Bilateral Screening Mammogram, [facility]. 06/15/2018 Bilateral Screening Mammogram, [facility]. 05/29/2021 Bilateral Screening Mammogram, [facility]. 06/04/2022 Bilateral MG 3D screening mammo w/cad, [facility]. 07/11/2023 Bilateral MG 3D screening mammo w/cad, [facility]. Tissue Density: The breasts are heterogeneously dense, which may obscure small masses. Findings: Analyzed By CAD. Right breast: There is no suspicious group of microcalcifications or new suspicious mass. Left breast: There is no suspicious group of microcalcifications or new suspicious mass. Overall Assessment: Negative, BI-RAD 1 Management: Screening Mammogram of both breasts in [address] [facility] will attempt to contact patient to return for supplemental views and ultrasound if indicated. Patient should continue monthly self-breast exams. A clinical breast exam by your physician is recommended on an annual basis. This exam should not preclude additional follow-up of suspicious palpable abnormalities. Note on Anastacia scores and lifetime risk: 1. A Anastacia score greater than 3% is considered moderate risk. If this is the case, consider specialist referral to assess eligibility for a risk reducing agent. 2. If overall lifetime risk for the development of breast cancer is 20% or higher, the patient may qualify for future screening with alternating mammogram and breast MRI. [facility], , 07/11/2024 8:20 AM. Electronically signed and approved by: Bryon Quintanilla DO
== END | disposition home or self-care (01) ==
LOC: RADMAMWWP 07:32
PROVIDERS: ATTEND Obstetrics & Gynecology
DX: Z12.31 Encounter for screening mammogram for malignant neoplasm of breast (principal); R92.333 Mammographic heterogeneous density, bilateral breasts; Z92.0 Personal history of contraception
CPT/HCPCS: 77063; 77067